=== PATIENT | male | born 2000 | race Caucasian/White ===

== ENCOUNTER → 2020-01-01 | Emergency (ER) | payer BC ==
[~2020-01-01] VITALS: Ht 180.3 cm; Wt 65.9 kg
[2020-01-01 17:00] VITALS: TEMP 99
[2020-01-01 17:23] VITALS: BP 130/71; PULSE 81
== END ==
LOC: COL.ER 16:39
DX: U07.1 COVID-19 (principal)

== ENCOUNTER 2020-03-21 14:07 | Emergency (ER) | payer BC ==
[~2020-03-21] VITALS: Ht 180.3 cm; Wt 61.4 kg
[2020-03-21 14:19] VITALS: TEMP 98.6
[2020-03-21] MEDS ORDERED: PERCOCET 325 MG1 TA2 PO (16:04)
[2020-03-21] MEDS ORDERED: ZOFRAN ODT4 MG PO (16:04)
[2020-03-21 16:28] VITALS: BP 129/79; PULSE 85
== END 2020-03-21 16:31 | disposition home or self-care (01) ==
LOC: COL.ER 14:07
DX: S52.92XA Unspecified fracture of left forearm, initial encounter for closed fracture (principal); X50.1XXA Overexertion from prolonged static or awkward postures, initial encounter
CPT/HCPCS: J1170; J2270; J2405

== ENCOUNTER 2021-07-17 19:05 | Emergency (ER) | payer BC ==
[~2021-07-17] VITALS: Ht 177.8 cm; Wt 65.9 kg
[~2021-07-17 19:05] MED LIST: PERCOCET 325 MG1 TA2 PO; ZOFRAN ODT4 MG PO
[2021-07-17 19:14] VITALS: TEMP 99.3
[2021-07-17 20:04] LABS: STREP SCREEN NEGATIVE
[2021-07-17 20:58] VITALS: BP 117/76; PULSE 64
== END 2021-07-17 20:58 | disposition home or self-care (01) ==
LOC: COL.ER 19:05
PROVIDERS: Nurse Practitioner
DX: J06.9 Acute upper respiratory infection, unspecified (principal); Z20.822 Contact with and (suspected) exposure to COVID-19; Z28.310 Unvaccinated for COVID-19